=== PATIENT | female | born 1990 | race American Indian/Alaskan Native ===

== ENCOUNTER 2018-10-10 07:14 | Emergency (ER) | payer BC ==
[2018-10-10 07:22] VITALS: BP 123/78
[2018-10-10 07:49] LABS: Bilirubin,Urine NEG (Negative); Blood,Urine LG (Negative); Color,Urine Yellow (Yellow); Protein,Urine <15 mg/dL mg/dL (Negative); Urobilinogen,Urine < 2.0 mg/dL (<2.0)
[2018-10-10 08:02] LABS: HCG Qualitative,Urine Negative (Negative)
[2018-10-10] MEDS ORDERED: TORADOL IM ONE (08:15)
--- NOTE | 2018-10-10 08:28 | Emergency Department Report ---
HPI - General Chief Complaint: Abdominal Pain Time Seen by Provider: 10/10/18 08:06 - HPI HPI: 28-year-old female presents to the emergency department complaint of some pelvic pain that started this morning but has happened multiple times over the past 3 months, usually when the patient has her menstrual cycle. She denies any vaginal discharge, dysuria but does have some vaginal bleeding with the menstrual cycle. She says that she started her cycle yesterday. She says that it is not a normal cramping sensation and is more of a tearing feeling. She denies any fever. She has not taken anything for her symptoms prior to presentation. She has an appointment with a new WATCH ASSEMBLER on October 21. ED Past Medical Hx - Past Medical History Hx Asthma: Yes - Surgical History Past Surgical History?: No - Social History Smoking Status: Never Smoker Substance Use Type: None - Medications Home Medications: Home Medications Medication Instructions Recorded Confirmed Last Taken Type RX: traMADol [Ultram 50 MG tab] 50 mg PO Q6HR PRN #20 tablet 05/10/15 10/07/15 09/24/15 09:00 Rx Cyclobenzaprine HCl [Flexeril 5 MG 5 mg PO TID PRN 10/07/15 10/07/15 09/24/15 09:00 History TAB] RX: Magnesium Citrate [Citrate of 300 ml PO ONCE #1 bottle 10/07/15 Unknown Rx Magnesia] Fluticasone [Flonase] 1 spray NS QDAY #1 bottle 10/10/18 Unknown Rx Loratadine [Claritin] 10 mg PO DAILY #20 tablet 10/10/18 Unknown Rx RX: Ibuprofen 800 mg PO Q8H PRN #20 tablet 10/10/18 Unknown Rx ED Review of Systems ROS: Stated complaint: MENSTRUAL CYCLE PAIN Other details as noted in HPI Comment: All other systems reviewed and negative Constitutional: denies: chills, fever Eyes: denies: eye pain, eye discharge, vision change ENT: denies: ear pain, throat pain Respiratory: denies: cough, shortness of breath, wheezing Cardiovascular: denies: chest pain, palpitations Gastrointestinal: denies: vomiting, diarrhea Genitourinary: other (pelvic pain). denies: dysuria Musculoskeletal: denies: joint swelling, arthralgia Skin: denies: rash, lesions Neurological: denies: headache, weakness Physical Exam - Physical Exam Vital Signs: Vital Signs 10/10/18 07:19 Temperature 97.8 F Pulse Rate 79 Respiratory 18 Rate Blood Pressure 123/78 O2 Sat by Pulse 99 Oximetry Physical Exam: GENERAL: The patient is well-developed well-nourished. HEENT: Normocephalic. Atraumatic. Patient has moist mucous membranes. EYES: Extraocular motions are intact. NECK: Supple. Trachea is midline. CHEST/LUNGS: Clear to auscultation. There is no respiratory distress noted. HEART/CARDIOVASCULAR: Regular. There is no tachycardia. There is no obvious murmur. ABDOMEN: Abdomen is soft, nontender. Patient has normal bowel sounds. There is no abdominal distention. SKIN: Skin is warm and dry. NEURO: The patient is awake, alert, and oriented. The patient is cooperative. The patient has no focal neurologic deficits. The patient has normal speech. MUSCULOSKELETAL: There is no tenderness or deformity. There is no limitation range of motion. There is no evidence of acute injury. ED Course Vital Signs 10/10/18 07:19 Temperature 97.8 F Pulse Rate 79 Respiratory 18 Rate Blood Pressure 123/78 O2 Sat by Pulse 99 Oximetry ED Medical Decision Making - Radiology Data Radiology results: report reviewed ULTRASOUND PELVIS DUPLEX DOPPLER COMPLETE ULTRASOUND TRANSVAGINAL HISTORY: Pelvic pain. COMPARISON: None. TECHNIQUE: Transabdominal and transvaginal ultrasound with color doppler interrogation. FINDINGS: Uterus: The uterus is anteverted. The uterus measures 8 x 4 x 4 cm. No uterine mass. Normal cervix. Endometrium: 6.5 mm. No focal abnormality. Right ovary: 3.3 x 1.8 x 2.5 cm. No focal abnormality. Left ovary: 2.6 x 1.5 x 2.0 cm. No focal abnormality. No pelvic fluid or mass is identified. Spectral wave form analysis demonstrates arterial flow to both ovaries. IMPRESSION: Unremarkable transabdominal and transvaginal pelvic ultrasounds. Transcribed By: TTR Dictated By: ARIANA LIAO JR, MD Electronically Authenticated By: ARIANA LIAO JR, MD Signed Date/Time: 10/10/18 0913 - Medical Decision Making Patient presents to the emergency department with complaint of some pelvic pain with some radiation down towards the back that has been going on since the patient started her menstrual cycle and has happened in the past with previous menstrual cycles. Urinalysis does not show any urinary tract infection and the patient is not . A transabdominal and transvaginal pelvic ultrasound was done that was resulted as unremarkable/normal. Vital signs stable throughout her ED course. The patient was given a shot of Toradol with some improvement of her discomfort. Patient was also asking for some treatments and/or medications for intermittent sinus congestion. The patient has an appointment with her WATCH ASSEMBLER in a few weeks and has been asked to move it up if possible. She will return to the ER with any worsening of her symptoms or any acute distress. - Differential Diagnosis ovarian torsion, ovarian cyst, menstrual pain, UTI, Critical Care Time: No Critical care attestation.: If time is entered above; I have spent that time in minutes in the direct care of this critically ill patient, excluding procedure time. ED Disposition Clinical Impression: Pelvic pain, Sinus congestion Disposition: TO HOME OR SELFCARE Is pt being admited?: No Condition: Stable Additional Instructions: Please follow-up with your WATCH ASSEMBLER regarding your pelvic pains and/or menstrual discomfort. Please follow-up with your primary care physician regarding your sinus issues. Return to the emergency Department with any worsening of her symptoms or any acute distress. Prescriptions: Fluticasone [Flonase] 1 spray NS QDAY #1 bottle RX: Ibuprofen 800 mg PO Q8H PRN #20 tablet PRN Reason: Pain , Severe (7-10) Loratadine [Claritin] 10 mg PO DAILY #20 tablet Referrals: PRIMARY CARE, [Primary Care Provider] - [facility] Forms: Work/School Release Form(ED) Time of Disposition: 09:56
--- NOTE | 2018-10-10 09:16 | Ultrasound Report ---
ULTRASOUND PELVIS DUPLEX DOPPLER COMPLETE ULTRASOUND TRANSVAGINAL HISTORY: Pelvic pain. COMPARISON: None. TECHNIQUE: Transabdominal and transvaginal ultrasound with color doppler interrogation. FINDINGS: Uterus: The uterus is anteverted. The uterus measures 8 x 4 x 4 cm. No uterine mass. Normal cervix. Endometrium: 6.5 mm. No focal abnormality. Right ovary: 3.3 x 1.8 x 2.5 cm. No focal abnormality. Left ovary: 2.6 x 1.5 x 2.0 cm. No focal abnormality. No pelvic fluid or mass is identified. Spectral wave form analysis demonstrates arterial flow to both ovaries. IMPRESSION: Unremarkable transabdominal and transvaginal pelvic ultrasounds.
== END 2018-10-10 10:31 | disposition home or self-care (01) ==
LOC: ED 07:14
DX: R10.2 Pelvic and perineal pain (principal); N93.9 Abnormal uterine and vaginal bleeding, unspecified; R09.81 Nasal congestion; J45.909 Unspecified asthma, uncomplicated; Z91.013 Allergy to seafood; Z91.018 Allergy to other foods
CPT/HCPCS: 76830; 81001; 81025; 93975; 96372; 99284; J1885

== ENCOUNTER 2019-05-27 19:28 | Emergency (ER) | payer BC ==
[2019-05-27 20:05] VITALS: BP 136/82
--- NOTE | 2019-05-27 20:07 | Event Note ---
ED Screening Note Date of service: 05/27/19 Time: 20:03 ED Screening Note: 29 y o female presents with cc of vaginal bleeding that has worsened x 3 days states about 8 weeks preg This initial assessment/diagnostic orders/clinical plan/treatment(s) is/are subject to change based on patients health status, clinical progression and re- assessment by fellow clinical providers in the ED. Further treatment and workup at subsequent clinical providers discretion. Patient/guardian urged not to elope from the ED as their condition may be serious if not clinically assessed and managed. Initial orders include:
[2019-05-27 20:34] LABS: Basophils # (Auto) 0.1 K/mm3 (0.0-0.1); Basophils % (Auto) 0.9 % (0.0-1.8); Eosinophils # (Auto) 0.1 K/mm3 (0.0-0.4); Eosinophils % (Auto) 1.6 % (0.0-4.3); Hematocrit 35.9 % (30.3-42.9); Lymphocytes # (Auto) 3.1 K/mm3 (1.2-5.4); Lymphocytes % (Auto) 36.1 % (13.4-35.0); Mean Corpuscular HGB Conc 33 % (30-34); Mean Corpuscular Volume 88 fl (79-97); Monocytes # (Auto) 0.6 K/mm3 (0.0-0.8); Monocytes % (Auto) 7.2 % (0.0-7.3); Platelet Count 394 K/mm3 (140-440); Red Blood Count 4.09 M/mm3 (3.65-5.03); Red Cell Distribution Width 14.5 % (13.2-15.2)
[2019-05-27 20:54] LABS: BUN/Creatinine Ratio 15; Blood Urea Nitrogen 9 mg/dL (7-17); Calcium 9.5 mg/dL (8.4-10.2); Hemolysis Index 6
--- NOTE | 2019-05-27 22:30 | Ultrasound Report ---
OB ultrasound. 05/27/2019. HISTORY: Pelvic pain. FINDINGS: The uterus measures 8.5 x 3.7 x 4.7 cm. Endometrial stripe measures 8.5 mm. Negative for di screte mass or intrauterine . Right ovary measures 2.8 x 2.5 x 2.7 cm in demonstrate flow. Left ovary measures 3.2 x 1.8 x 1.6 cm i n demonstrate flow. Negative for adnexal mass or fluid. IMPRESSION: Mildly thickened endometrial stripe. Negative for intrauterine . Signer Name: Elie Menjivar MD Signed: 05/27/2019 10:25 PM Workstation Name: [email or web address]
[2019-05-27 22:39] LABS: Bilirubin,Urine NEG (Negative); Blood,Urine LG (Negative); Color,Urine Yellow (Yellow); Mucus,Urine FEW /HPF; Urobilinogen,Urine < 2.0 mg/dL (<2.0)
[2019-05-27 22:40] LABS: RBC,Urine > 182.0 /HPF (0.0-6.0)
--- NOTE | 2019-05-27 22:51 | Ultrasound Report ---
Pelvic ultrasound. 05/27/2019. HISTORY: Vaginal bleeding. FINDINGS: Imaging was performed transabdominally The uterus measures 8.5 x 3.7 x 3.7 cm. The endometr ial stripe measures 8 mm. The ovaries are not visualized. Negative for adnexal mass. IMPRESSION: Endometrial stripe 8 mm. An endovaginal exam will be performed. Signer Name: Elie Menjivar MD Signed: 05/27/2019 10:46 PM Workstation Name: [id number]
--- NOTE | 2019-05-27 23:37 | Emergency Department Report ---
ED Dysuria HPI - HPI Chief Complaint: Vaginal Bleeding Stated Complaint: 8WKS PREG/HEAVY BLEEDING Time Seen by Provider: 05/27/19 20:03 Duration: 1 Day Severity: Mild Symptoms: Dysuria: No, Frequency: No, Suprapubic Pain: No, Flank Pain: No, Fever: No, Hematuria: No, Abdominal Pain: No, Previous UTI's: No Other History: 29 YO AA FEMALE COMES TO ER WITH VAG BLEEDING. SHE HAD 3 POS HOME PREG TESTS. THIS IS FIRST PREG. SHE STATES THE BLEEDING IS LIGHT. ED Review of Systems ROS: Stated complaint: 8WKS PREG/HEAVY BLEEDING Other details as noted in HPI Comment: All other systems reviewed and negative ED Past Medical Hx - Past Medical History Previous Medical History?: Yes Hx Asthma: Yes - Social History Smoking Status: Never Smoker Substance Use Type: None - Medications Home Medications: Home Medications Medication Instructions Recorded Confirmed Last Taken Type traMADol [Ultram 50 MG tab] 50 mg PO Q6HR PRN #20 tablet 05/10/15 10/07/15 09/24/15 09:00 Rx Cyclobenzaprine HCl [Flexeril 5 MG 5 mg PO TID PRN 10/07/15 10/07/15 09/24/15 09:00 History TAB] Magnesium Citrate [Citrate of 300 ml PO ONCE #1 bottle 10/07/15 Unknown Rx Magnesia] Fluticasone [Flonase] 1 spray NS QDAY #1 bottle 10/10/18 Unknown Rx Ibuprofen [Ibuprofen 800] 800 mg PO Q8H PRN #20 tablet 10/10/18 Unknown Rx Loratadine [Claritin] 10 mg PO DAILY #20 tablet 10/10/18 Unknown Rx Dysuria Exam - Exam General: Vital signs noted. No distress. Alert and acting appropriately. Exam: Yes Moist Mucous Membranes, No CVA Tenderness, No Abdominal Tenderness, No Rigidity or Guarding Labs: Lab Results 05/27/19 05/27/19 05/27/19 Range/Units 20:26 20:26 22:02 WBC 8.6 (4.5-11.0) K/mm3 RBC 4.09 (3.65-5.03) M/mm3 Hgb 12.0 (10.1-14.3) gm/dl Hct 35.9 (30.3-42.9) % MCV 88 (79-97) fl MCH 29 (28-32) pg MCHC 33 (30-34) % RDW 14.5 (13.2-15.2) % Plt Count 394 (140-440) K/mm3 Lymph % (Auto) 36.1 H (13.4-35.0) % [place] % (Auto) 7.2 (0.0-7.3) % Eos % (Auto) 1.6 (0.0-4.3) % Baso % (Auto) 0.9 (0.0-1.8) % Lymph # 3.1 (1.2-5.4) K/mm3 [place] # 0.6 (0.0-0.8) K/mm3 Eos # 0.1 (0.0-0.4) K/mm3 Baso # 0.1 (0.0-0.1) K/mm3 Seg Neutrophils % 54.2 (40.0-70.0) % Seg Neutrophils # 4.7 (1.8-7.7) K/mm3 Sodium 136 L (137-145) mmol/L Potassium 3.4 L (3.6-5.0) mmol/L Chloride 98.4 (98-107) mmol/L Carbon Dioxide 26 (22-30) mmol/L Anion Gap 15 mmol/L BUN 9 (7-17) mg/dL Creatinine 0.6 L (0.7-1.2) mg/dL Estimated GFR > 60 ml/min BUN/Creatinine Ratio 15 % Glucose 91 (65-100) mg/dL Calcium 9.5 (8.4-10.2) mg/dL HCG, Quant (0-4) mIU/mL Urine Color Yellow (Yellow) Urine Turbidity Slightly-cloudy (Clear) Urine pH 6.0 (5.0-7.0) Ur Specific [place] 1.024 (1.003-1.030) Urine Protein 30 mg/dl (Negative) mg/dL Urine Glucose (UA) Neg (Negative) mg/dL Urine Ketones Neg (Negative) mg/dL Urine Blood Lg (Negative) Urine Nitrite Neg (Negative) Urine Bilirubin Neg (Negative) Urine Urobilinogen < 2.0 (<2.0) mg/dL Ur Leukocyte Esterase Tr (Negative) Urine WBC (Auto) 12.0 H (0.0-6.0) /HPF Urine RBC (Auto) > 182.0 (0.0-6.0) /HPF U Epithel Cells (Auto) 2.0 (0-13.0) /HPF Urine Mucus Few /HPF Blood Type Ord Rhogam Gestat Weeks WEEKS 05/27/19 05/27/19 Range/Units 22:28 22:28 WBC (4.5-11.0) K/mm3 RBC (3.65-5.03) M/mm3 Hgb (10.1-14.3) gm/dl Hct (30.3-42.9) % MCV (79-97) fl MCH (28-32) pg MCHC (30-34) % RDW (13.2-15.2) % Plt Count (140-440) K/mm3 Lymph % (Auto) (13.4-35.0) % [place] % (Auto) (0.0-7.3) % Eos % (Auto) (0.0-4.3) % Baso % (Auto) (0.0-1.8) % Lymph # (1.2-5.4) K/mm3 [place] # (0.0-0.8) K/mm3 Eos # (0.0-0.4) K/mm3 Baso # (0.0-0.1) K/mm3 Seg Neutrophils % (40.0-70.0) % Seg Neutrophils # (1.8-7.7) K/mm3 Sodium (137-145) mmol/L Potassium (3.6-5.0) mmol/L Chloride (98-107) mmol/L Carbon Dioxide (22-30) mmol/L Anion Gap mmol/L BUN (7-17) mg/dL Creatinine (0.7-1.2) mg/dL Estimated GFR ml/min BUN/Creatinine Ratio % Glucose (65-100) mg/dL Calcium (8.4-10.2) mg/dL HCG, Quant 8321 H (0-4) mIU/mL Urine Color (Yellow) Urine Turbidity (Clear) Urine pH (5.0-7.0) Ur Specific [place] (1.003-1.030) Urine Protein (Negative) mg/dL Urine Glucose (UA) (Negative) mg/dL Urine Ketones (Negative) mg/dL Urine Blood (Negative) Urine Nitrite (Negative) Urine Bilirubin (Negative) Urine Urobilinogen (<2.0) mg/dL Ur Leukocyte Esterase (Negative) Urine WBC (Auto) (0.0-6.0) /HPF Urine RBC (Auto) (0.0-6.0) /HPF U Epithel Cells (Auto) (0-13.0) /HPF Urine Mucus /HPF Blood Type AB POSITIVE Ord Rhogam Gestat Weeks Rh pos WEEKS ED Course Vital Signs 05/27/19 20:03 Temperature 99.1 F Pulse Rate 90 Respiratory 18 Rate Blood Pressure 136/82 O2 Sat by Pulse 97 Oximetry ED Medical Decision Making - Lab Data Result diagrams: 05/27/19 20:26 05/27/19 20:26 - Radiology Data Radiology results: report reviewed, image reviewed - Medical Decision Making Lab Results 05/27/19 05/27/19 05/27/19 Range/Units 20:26 20:26 22:02 WBC 8.6 (4.5-11.0) K/mm3 RBC 4.09 (3.65-5.03) M/mm3 Hgb 12.0 (10.1-14.3) gm/dl Hct 35.9 (30.3-42.9) % MCV 88 (79-97) fl MCH 29 (28-32) pg MCHC 33 (30-34) % RDW 14.5 (13.2-15.2) % Plt Count 394 (140-440) K/mm3 Lymph % (Auto) 36.1 H (13.4-35.0) % [place] % (Auto) 7.2 (0.0-7.3) % Eos % (Auto) 1.6 (0.0-4.3) % Baso % (Auto) 0.9 (0.0-1.8) % Lymph # 3.1 (1.2-5.4) K/mm3 [place] # 0.6 (0.0-0.8) K/mm3 Eos # 0.1 (0.0-0.4) K/mm3 Baso # 0.1 (0.0-0.1) K/mm3 Seg Neutrophils % 54.2 (40.0-70.0) % Seg Neutrophils # 4.7 (1.8-7.7) K/mm3 Sodium 136 L (137-145) mmol/L Potassium 3.4 L (3.6-5.0) mmol/L Chloride 98.4 (98-107) mmol/L Carbon Dioxide 26 (22-30) mmol/L Anion Gap 15 mmol/L BUN 9 (7-17) mg/dL Creatinine 0.6 L (0.7-1.2) mg/dL Estimated GFR > 60 ml/min BUN/Creatinine Ratio 15 % Glucose 91 (65-100) mg/dL Calcium 9.5 (8.4-10.2) mg/dL HCG, Quant (0-4) mIU/mL Urine Color Yellow (Yellow) Urine Turbidity Slightly-cloudy (Clear) Urine pH 6.0 (5.0-7.0) Ur Specific [place] 1.024 (1.003-1.030) Urine Protein 30 mg/dl (Negative) mg/dL Urine Glucose (UA) Neg (Negative) mg/dL Urine Ketones Neg (Negative) mg/dL Urine Blood Lg (Negative) Urine Nitrite Neg (Negative) Urine Bilirubin Neg (Negative) Urine Urobilinogen < 2.0 (<2.0) mg/dL Ur Leukocyte Esterase Tr (Negative) Urine WBC (Auto) 12.0 H (0.0-6.0) /HPF Urine RBC (Auto) > 182.0 (0.0-6.0) /HPF U Epithel Cells (Auto) 2.0 (0-13.0) /HPF Urine Mucus Few /HPF Blood Type Ord Rhogam Gestat Weeks WEEKS 05/27/19 05/27/19 Range/Units 22:28 22:28 WBC (4.5-11.0) K/mm3 RBC (3.65-5.03) M/mm3 Hgb (10.1-14.3) gm/dl Hct (30.3-42.9) % MCV (79-97) fl MCH (28-32) pg MCHC (30-34) % RDW (13.2-15.2) % Plt Count (140-440) K/mm3 Lymph % (Auto) (13.4-35.0) % [place] % (Auto) (0.0-7.3) % Eos % (Auto) (0.0-4.3) % Baso % (Auto) (0.0-1.8) % Lymph # (1.2-5.4) K/mm3 [place] # (0.0-0.8) K/mm3 Eos # (0.0-0.4) K/mm3 Baso # (0.0-0.1) K/mm3 Seg Neutrophils % (40.0-70.0) % Seg Neutrophils # (1.8-7.7) K/mm3 Sodium (137-145) mmol/L Potassium (3.6-5.0) mmol/L Chloride (98-107) mmol/L Carbon Dioxide (22-30) mmol/L Anion Gap mmol/L BUN (7-17) mg/dL Creatinine (0.7-1.2) mg/dL Estimated GFR ml/min BUN/Creatinine Ratio % Glucose (65-100) mg/dL Calcium (8.4-10.2) mg/dL HCG, Quant 8321 H (0-4) mIU/mL Urine Color (Yellow) Urine Turbidity (Clear) Urine pH (5.0-7.0) Ur Specific [place] (1.003-1.030) Urine Protein (Negative) mg/dL Urine Glucose (UA) (Negative) mg/dL Urine Ketones (Negative) mg/dL Urine Blood (Negative) Urine Nitrite (Negative) Urine Bilirubin (Negative) Urine Urobilinogen (<2.0) mg/dL Ur Leukocyte Esterase (Negative) Urine WBC (Auto) (0.0-6.0) /HPF Urine RBC (Auto) (0.0-6.0) /HPF U Epithel Cells (Auto) (0-13.0) /HPF Urine Mucus /HPF Blood Type AB POSITIVE Ord Rhogam Gestat Weeks Rh pos WEEKS Vital Signs 05/27/19 20:03 Temperature 99.1 F Pulse Rate 90 Respiratory 18 Rate Blood Pressure 136/82 O2 Sat by Pulse 97 Oximetry LABS NOTED UA NOTED POS PREG RH POS US NOTED DISCUSSED WITH PT THE IMPORTANCE OF FOLLOW UP WITH OBGYN IN 48 HOURS FOR REPEAT LABS/US. AMBULATORY, NON TOXIC, AND TAKING PO DC HOME WITH DC PLAN OF CARE. - Differential Diagnosis PREG/UTI/ECTOPIC Critical care attestation.: If time is entered above; I have spent that time in minutes in the direct care of this critically ill patient, excluding procedure time. ED Disposition Clinical Impression: , Vaginal bleeding during Disposition: DC-01 TO HOME OR SELFCARE Is pt being admited?: No Does the pt Need Aspirin: No Condition: Stable Instructions: (ED) Additional Instructions: pelvic rest follow up obgyn in 48h for a repeat HCG test. TODAYS LEVEL IS 8321 BLOOD TYPE IS RH POS tylenol for pain Referrals: ARIANA CALLEJAS MD [Staff Physician] - 3-5 Days Time of Disposition: 23:46
== END 2019-05-28 00:30 | disposition home or self-care (01) ==
LOC: ED 19:28
DX: O20.8 Other hemorrhage in early pregnancy (principal); O99.511 Diseases of the respiratory system complicating pregnancy, first trimester; J45.909 Unspecified asthma, uncomplicated; Z79.899 Other long term (current) drug therapy; Z91.018 Allergy to other foods; Z91.013 Allergy to seafood; Z3A.08 8 weeks gestation of pregnancy
CPT/HCPCS: 36415; 76801; 76817; 80048; 81001; 84702; 85025; 86900; 86901; 87086